=== PATIENT | male | born 1965 | race Caucasian/White ===

== ENCOUNTER → 2021-03-27 | Outpatient (CLI) | payer MEDICAID ==
[2021-03-27 15:30] LABS: Basophils # (auto) 0.1 10 ^3/uL (0-0.2); Basophils % (auto) 0.8 % (0.0-2.0); Eosinophils # (auto) 0.2 10 ^3/uL (0-0.8); Eosinophils % (auto) 2.7 % (0.0-7.0); Hematocrit 46.4 % (41.0-53.0); Hemoglobin 15.6 g/dL (13.5-17.5); Lymphocytes # (auto) 1.5 10 ^3/uL (0.4-5.4); Lymphocytes % (auto) 22.2 % (10.0-50.0); Mean Corpuscular Hemoglobin 32.7 pg (28.0-32.0); Mean Corpuscular Hgb Conc. 33.6 g/dL (32.0-36.0); Mean Corpuscular Volume 97.4 fL (80.0-100.0); Monocytes # (auto) 0.5 10 ^3/uL (0-1.3); Monocytes % (auto) 8.1 % (0.0-12.0); Neutrophils # (auto) 4.5 10 ^3/uL (1.6-8.6); Neutrophils % (auto) 66.2 % (37.0-80.0); Red Blood Cells 4.77 10^6/uL (4.5-5.90); Red Cell Distribution Width 15.4 % (11.8-14.3); White Blood Cell 6.8 10^3/uL (4.4-10.8)
[2021-03-27 16:32] LABS: Albumin 3.2 g/dL (3.4-5.0); BUN/Creatinine Ratio 11.5; Calcium 8.9 mg/dL (8.5-10.1); Potassium 4.8 mmol/L (3.5-5.1)
[2021-03-27 16:41] LABS: Bilirubin, Total 1.1 mg/dL (0.2-1.0); Total Protein 6.4 g/dL (6.4-8.2)
== END | disposition home or self-care (01) ==
LOC: LAB 15:10
PROVIDERS: ATTEND Student in an Organized Health Care Education/Training Program
DX: E78.5 Hyperlipidemia, unspecified (principal)
CPT/HCPCS: 36415; 80053; 80061; 85025

== ENCOUNTER 2021-06-21 14:46 | Emergency (ER) | payer MEDICAID ==
[~2021-06-21] VITALS: Ht 182.9 cm; Wt 113.4 kg
[2021-06-21 15:33] LABS: Basophils # (auto) 0 10 ^3/uL (0-0.2); Basophils % (auto) 0.3 % (0.0-2.0); Eosinophils # (auto) 0 10 ^3/uL (0-0.8); Eosinophils % (auto) 0.4 % (0.0-7.0); Hematocrit 37.8 % (41.0-53.0); Hemoglobin 13.1 g/dL (13.5-17.5); Lymphocytes # (auto) 0.7 10 ^3/uL (0.4-5.4); Mean Corpuscular Hemoglobin 34.1 pg (28.0-32.0); Mean Corpuscular Hgb Conc. 34.6 g/dL (32.0-36.0); Mean Corpuscular Volume 98.5 fL (80.0-100.0); Monocytes # (auto) 0.5 10 ^3/uL (0-1.3); Monocytes % (auto) 6.8 % (0.0-12.0); Neutrophils # (auto) 5.5 10 ^3/uL (1.6-8.6); Neutrophils % (auto) 81.5 % (37.0-80.0); Nucleated Red Blood Cells % 0.1 %; Red Blood Cells 3.84 10^6/uL (4.5-5.90); Red Cell Distribution Width 16.7 % (11.8-14.3); White Blood Cell 6.7 10^3/uL (4.4-10.8)
[2021-06-21] MEDS ORDERED: SODIUM CHLORIDE 0.9% 1,000 ML IV ONE (15:45)
[2021-06-21] MEDS ORDERED: CLINDAMYCIN 600MG IV 50 ML IV ONE (15:45)
[2021-06-21] MEDS ORDERED: cefTRIAXone 1GM/50ML D5W 50 ML IV ONE (15:45)
[2021-06-21 15:57] LABS: Albumin 3.2 g/dL (3.4-5.0); Calcium 9.6 mg/dL (8.5-10.1); Potassium 3.7 mmol/L (3.5-5.1)
[2021-06-21 16:00] LABS: BUN/Creatinine Ratio 8.3; Bilirubin, Total 0.9 mg/dL (0.2-1.0); Total Protein 7.5 g/dL (6.4-8.2)
[2021-06-21 17:00] LABS: INR 1.04 (0.9-1.15)
[2021-06-21 18:29] VITALS: BP 110/57
== END 2021-06-21 18:24 | disposition short-term general hospital (02) ==
LOC: EDBD 14:46 → ER 14:46 → EDUNIT# 14:46 → ER 18:24
DX: L03.211 Cellulitis of face (principal); I10 Essential (primary) hypertension
CPT/HCPCS: 36415; 70486; 71045; 80053; 84484; 85025; 85610; 85730; 87426; 96365; 96368; 99285; J0696; J3490; J7030

== ENCOUNTER 2022-03-22 15:51 | Inpatient (IN) | payer MEDICAID ==
[~2022-03-22] VITALS: Ht 193 cm; Wt 133.8 kg
[2022-03-22] MEDS ORDERED: FUROSEMIDE 40 MG/4 ML VIAL IV ONE (16:00)
[2022-03-22 17:03] LABS: Basophils # (auto) 0 10 ^3/uL (0-0.2); Basophils % (auto) 0.8 % (0.0-2.0); Eosinophils # (auto) 0.2 10 ^3/uL (0-0.8); Eosinophils % (auto) 5.6 % (0.0-7.0); Hematocrit 38.6 % (41.0-53.0); Hemoglobin 12.9 g/dL (13.5-17.5); Lymphocytes # (auto) 1.2 10 ^3/uL (0.4-5.4); Lymphocytes % (auto) 32.9 % (10.0-50.0); Mean Corpuscular Hemoglobin 30.7 pg (28.0-32.0); Mean Corpuscular Hgb Conc. 33.3 g/dL (32.0-36.0); Mean Corpuscular Volume 92.3 fL (80.0-100.0); Monocytes # (auto) 0.5 10 ^3/uL (0-1.3); Monocytes % (auto) 13.2 % (0.0-12.0); Neutrophils # (auto) 1.7 10 ^3/uL (1.6-8.6); Neutrophils % (auto) 47.5 % (37.0-80.0); Nucleated Red Blood Cells % 0.4 %; Red Blood Cells 4.18 10^6/uL (4.5-5.90); Red Cell Distribution Width 14.6 % (11.8-14.3); White Blood Cell 3.7 10^3/uL (4.4-10.8)
[2022-03-22 17:14] LABS: Albumin 2.9 g/dL (3.4-5.0); BUN/Creatinine Ratio 9.5; Calcium 9.4 mg/dL (8.5-10.1); Magnesium 2.7 mg/dL (1.6-2.6); Potassium 4.3 mmol/L (3.5-5.1)
[2022-03-22 17:17] LABS: Bilirubin, Total 0.4 mg/dL (0.2-1.0); Total Protein 6.7 g/dL (6.4-8.2)
[2022-03-22 18:55] LABS: Urine Bacteria FEW /hpf (None Seen); Urine Blood Negative /uL (Negative); Urine Hyaline Cast FEW /lpf (0 - 2); Urine Specific Gravity 1.014 (1.001-1.035); Urine WBC 68 /hpf (0 - 3)
[2022-03-22] MEDS ORDERED: MORPHINE SULFATE INJ 2 MG/ml SYRG IV PRN (19:15)
[2022-03-22] MEDS ORDERED: ONDANSETRON HCL 4 MG/2 ML VIAL IV PRN (19:15)
[2022-03-22] MEDS ORDERED: NITROGLYCERIN 0.4 MG SL TAB SL PRN ×2 (19:15)
[2022-03-22] MEDS ORDERED: ENOXAPARIN SOD 30 MG/0.3 ML SYRINGE IV ONE (19:15)
[2022-03-22] MEDS ORDERED: MORPHINE SULFATE 4 MG/ML SYR/VIAL IV PRN (19:15)
[2022-03-22] MEDS ORDERED: ACETAMINOPHEN 325 MG TAB PO PRN (19:15)
[2022-03-22] MEDS: cefTRIAXone 1GM/50ML D5W 50 ML IV SCH (20:06)
[2022-03-22] MEDS: PANTOPRAZOLE 40 MG/10 ML VIAL INJ IV SCH (20:06)
[2022-03-22 20:40] LABS: Creatinine, Urine 132 mg/dL (30.0-125.0); Sodium Urine 45 mmol/L (40-220)
[2022-03-23] VITALS (8 sets, daily range): BP systolic 109–147; BP diastolic 57–72
[2022-03-23 06:51] LABS: Basophils # (auto) 0 10 ^3/uL (0-0.2); Basophils % (auto) 0.5 % (0.0-2.0); Eosinophils # (auto) 0.2 10 ^3/uL (0-0.8); Eosinophils % (auto) 3.9 % (0.0-7.0); Hematocrit 38.6 % (41.0-53.0); Hemoglobin 12.8 g/dL (13.5-17.5); Lymphocytes # (auto) 1.1 10 ^3/uL (0.4-5.4); Lymphocytes % (auto) 18.5 % (10.0-50.0); Mean Corpuscular Hemoglobin 30.7 pg (28.0-32.0); Mean Corpuscular Hgb Conc. 33.1 g/dL (32.0-36.0); Mean Corpuscular Volume 92.6 fL (80.0-100.0); Monocytes # (auto) 0.6 10 ^3/uL (0-1.3); Monocytes % (auto) 10.4 % (0.0-12.0); Neutrophils # (auto) 4.1 10 ^3/uL (1.6-8.6); Neutrophils % (auto) 66.7 % (37.0-80.0); Red Blood Cells 4.17 10^6/uL (4.5-5.90); Red Cell Distribution Width 14.7 % (11.8-14.3); White Blood Cell 6.1 10^3/uL (4.4-10.8)
[2022-03-23 07:26] LABS: Albumin 2.9 g/dL (3.4-5.0); Calcium 9.2 mg/dL (8.5-10.1); Magnesium 2.5 mg/dL (1.6-2.6); Potassium 4.2 mmol/L (3.5-5.1)
[2022-03-23 07:31] LABS: BUN/Creatinine Ratio 9.7; Bilirubin, Total 0.3 mg/dL (0.2-1.0); Total Protein 6.4 g/dL (6.4-8.2)
[2022-03-23] MEDS: cefTRIAXone 1GM/50ML D5W 50 ML IV SCH (09:27)
[2022-03-23] MEDS: PANTOPRAZOLE 40 MG/10 ML VIAL INJ IV SCH (09:27)
[2022-03-23] MEDS: ASPirin 81 mg TAB PO SCH (11:00)
[2022-03-23] MEDS: LISINOPRIL 5 MG TAB PO SCH (11:03)
[2022-03-23] MEDS: FUROSEMIDE 40 MG/4 ML VIAL IV SCH (11:04)
[2022-03-23] MEDS: DOCUSATE SOD 100 MG CAP PO SCH (11:04)
[2022-03-23] MEDS ORDERED: ENOXAPARIN SOD 40 MG/0.4 ML SYRINGE SC ONE (11:30)
[2022-03-23] MEDS: HYDROcodone-ACET 10/325MG TAB PO PRN ×2 (15:06→22:00)
[2022-03-23] MEDS: TEMAZEPAM 15 MG CAP PO PRN (22:00)
[2022-03-23] MEDS: ATORVASTATIN 20 MG TAB PO SCH (22:00)
[2022-03-24] VITALS (7 sets, daily range): BP systolic 103–131; BP diastolic 54–96
[2022-03-24] MEDS: HYDROcodone-ACET 10/325MG TAB PO PRN ×3 (05:10→20:28)
[2022-03-24 06:29] LABS: Basophils # (auto) 0 10 ^3/uL (0-0.2); Basophils % (auto) 0.8 % (0.0-2.0); Eosinophils # (auto) 0.3 10 ^3/uL (0-0.8); Hematocrit 40.9 % (41.0-53.0); Hemoglobin 13.5 g/dL (13.5-17.5); Lymphocytes # (auto) 1.5 10 ^3/uL (0.4-5.4); Lymphocytes % (auto) 25.2 % (10.0-50.0); Mean Corpuscular Hemoglobin 30.6 pg (28.0-32.0); Mean Corpuscular Volume 92.5 fL (80.0-100.0); Monocytes # (auto) 0.6 10 ^3/uL (0-1.3); Monocytes % (auto) 9.5 % (0.0-12.0); Neutrophils # (auto) 3.5 10 ^3/uL (1.6-8.6); Neutrophils % (auto) 59.5 % (37.0-80.0); Nucleated Red Blood Cells % 0.1 %; Red Blood Cells 4.42 10^6/uL (4.5-5.90); Red Cell Distribution Width 14.2 % (11.8-14.3); White Blood Cell 5.8 10^3/uL (4.4-10.8)
[2022-03-24 06:46] LABS: Calcium 9.7 mg/dL (8.5-10.1); Potassium 4.1 mmol/L (3.5-5.1)
[2022-03-24 06:50] LABS: BUN/Creatinine Ratio 10.7
[2022-03-24] MEDS: DOCUSATE SOD 100 MG CAP PO SCH (09:26)
[2022-03-24] MEDS: PANTOPRAZOLE 40 MG/10 ML VIAL INJ IV SCH (09:27)
[2022-03-24] MEDS: LISINOPRIL 5 MG TAB PO SCH ×2 (09:27→09:31)
[2022-03-24] MEDS: FUROSEMIDE 40 MG/4 ML VIAL IV SCH (09:28)
[2022-03-24] MEDS: ENOXAPARIN SOD 40 MG/0.4 ML SYRINGE SC SCH (09:28)
[2022-03-24] MEDS: ASPirin 81 mg TAB PO SCH (09:28)
[2022-03-24] MEDS: cefTRIAXone 1GM/50ML D5W 50 ML IV SCH (09:29)
[2022-03-24] MEDS: ATORVASTATIN 20 MG TAB PO SCH (22:12)
[2022-03-24] MEDS: TEMAZEPAM 15 MG CAP PO PRN (22:13)
[2022-03-25] MEDS: HYDROcodone-ACET 10/325MG TAB PO PRN ×2 (04:16→11:09)
[2022-03-25 05:18] VITALS: BP 129/95
[2022-03-25 06:42] LABS: Basophils # (auto) 0 10 ^3/uL (0-0.2); Basophils % (auto) 0.5 % (0.0-2.0); Eosinophils # (auto) 0.1 10 ^3/uL (0-0.8); Eosinophils % (auto) 0.9 % (0.0-7.0); Hematocrit 41.3 % (41.0-53.0); Hemoglobin 13.6 g/dL (13.5-17.5); Lymphocytes # (auto) 1.2 10 ^3/uL (0.4-5.4); Lymphocytes % (auto) 17.6 % (10.0-50.0); Mean Corpuscular Hemoglobin 30.6 pg (28.0-32.0); Mean Corpuscular Volume 92.6 fL (80.0-100.0); Monocytes # (auto) 0.4 10 ^3/uL (0-1.3); Monocytes % (auto) 6.1 % (0.0-12.0); Neutrophils # (auto) 5.1 10 ^3/uL (1.6-8.6); Neutrophils % (auto) 74.9 % (37.0-80.0); Red Blood Cells 4.46 10^6/uL (4.5-5.90); Red Cell Distribution Width 14.8 % (11.8-14.3); White Blood Cell 6.8 10^3/uL (4.4-10.8)
[2022-03-25 07:19] LABS: BUN/Creatinine Ratio 10.7; Calcium 9.7 mg/dL (8.5-10.1); Potassium 4.2 mmol/L (3.5-5.1)
[2022-03-25 08:00] VITALS: BP 111/5
[2022-03-25] MEDS: cefTRIAXone 1GM/50ML D5W 50 ML IV SCH (08:34)
[2022-03-25] MEDS: PANTOPRAZOLE 40 MG/10 ML VIAL INJ IV SCH (08:36)
[2022-03-25] MEDS: DOCUSATE SOD 100 MG CAP PO SCH (08:36)
[2022-03-25] MEDS: FUROSEMIDE 40 MG/4 ML VIAL IV SCH (08:36)
[2022-03-25] MEDS: LISINOPRIL 5 MG TAB PO SCH (08:37)
[2022-03-25] MEDS: ASPirin 81 mg TAB PO SCH (08:37)
[2022-03-25] MEDS: ENOXAPARIN SOD 40 MG/0.4 ML SYRINGE SC SCH (08:38)
[2022-03-25 08:41] VITALS: BP 126/78
[2022-03-25] MEDS ORDERED: ASPI-325 PO (11:29)
[2022-03-25] MEDS ORDERED: LISI-275 PO (11:29)
[2022-03-25] MEDS ORDERED: FURO1TAB33 PO (11:29)
[2022-03-25] MEDS ORDERED: ATOR20TA50 PO (11:29)
[2022-03-25] MEDS ORDERED: POLY33504 PO (12:40)
[2022-03-25] MEDS ORDERED: NAP500T PO (12:40)
[2022-03-25] MEDS ORDERED: DOCU100T15 PO (12:40)
[2022-03-25] MEDS ORDERED: GABA-339 PO (12:40)
[2022-03-25] MEDS ORDERED: QUET400T13 PO (12:40)
[2022-03-25] MEDS ORDERED: DULO1CAP6 PO (12:40)
[2022-03-25] MEDS ORDERED: DULO60CA PO (12:40)
[2022-03-25] MEDS ORDERED: BUSP10TA90 PO (12:40)
[2022-03-25] MEDS ORDERED: CLON0.5T3 PO (12:40)
[2022-03-25] MEDS ORDERED: SACU1TAB PO (12:40)
[2022-03-25] MEDS ORDERED: GABA300C10 PO (12:40)
[2022-03-25] MEDS ORDERED: HYDR-4798 PO (12:40)
[2022-03-25] MEDS ORDERED: DOCU100C10 PO (12:44)
[2022-03-25 12:56] VITALS: BP 111/57
[2022-03-25 13:09] VITALS: BP 111/57
== END 2022-03-25 13:56 | disposition home health service (06) | DRG 194 ==
LOC: EDBD 15:51 → ER 15:55 → TELE 19:23 → TELE-WESTW 03-23 00:47
PROVIDERS: ADMIT Nurse Practitioner Family; ATTEND Internal Medicine Pulmonary Disease
DX: I11.0 Hypertensive heart disease with heart failure (principal); N17.9 Acute kidney failure, unspecified; E83.41 Hypermagnesemia; I50.43 Acute on chronic combined systolic (congestive) and diastolic (congestive) heart failure; E78.5 Hyperlipidemia, unspecified; N30.00 Acute cystitis without hematuria; K64.8 Other hemorrhoids; R06.03 Acute respiratory distress; I25.10 Atherosclerotic heart disease of native coronary artery without angina pectoris; Z20.822 Contact with and (suspected) exposure to COVID-19; E66.01 Morbid (severe) obesity due to excess calories; R09.02 Hypoxemia; Z81.8 Family history of other mental and behavioral disorders; Z68.36 Body mass index [BMI] 36.0-36.9, adult; Z82.0 Family history of epilepsy and other diseases of the nervous system; Z87.891 Personal history of nicotine dependence; Z95.810 Presence of automatic (implantable) cardiac defibrillator
CPT/HCPCS: 36415; 71045; 80048; 80053; 80061; 81001; 82570; 83735; 83880; 84300; 84484; 85025; 87086; 87088; 87186; 87426; 93005; 93306; 93970; 96365; 96375; C9113; G0378; J0696

== ENCOUNTER → 2023-04-03 | Outpatient (CLI) | payer MEDICAID ==
[~2023-04-03] MED LIST: ASPI-325 PO; ATOR20TA50 PO; BUSP10TA90 PO; CLON0.5T3 PO; DOCU-265 PO; DULO1CAP6 PO; FURO1TAB33 PO; GABA-1250 PO; GABA-339 PO; HYDR-4798 PO; LISI-275 PO; NAP500T PO; POLY33504 PO; QUET400T13 PO; SACU1TAB PO
== END | disposition home or self-care (01) ==
LOC: LAB 11:53
PROVIDERS: ATTEND Urology
DX: R97.20 Elevated prostate specific antigen [PSA] (principal)
CPT/HCPCS: 84153

== ENCOUNTER → 2023-04-08 | Outpatient (CLI) | payer MEDICAID ==
[2023-04-08 14:29] LABS: Urine Bacteria NONE SEEN /hpf (None Seen); Urine Blood Negative /uL (Negative); Urine Clarity Clear (Clear); Urine Color Yellow (Yellow); Urine Hyaline Cast FEW /lpf (0 - 2); Urine Protein, UAD TRACE (Negative); Urine Specific Gravity 1.017 (1.001-1.035); Urine Urobilinogen Normal (Negative); Urine WBC 1 /hpf (0 - 3); Urine pH 5.5 (5.0-8.0)
== END | disposition home or self-care (01) ==
LOC: LAB 13:54
PROVIDERS: ATTEND Student in an Organized Health Care Education/Training Program
DX: N40.1 Benign prostatic hyperplasia with lower urinary tract symptoms (principal)
CPT/HCPCS: 81001; 87086

== ENCOUNTER 2024-05-28 12:20 | Inpatient (IN) | payer MEDICAID ==
[~2024-05-28] VITALS: Ht 193 cm; Wt 121.3 kg
--- NOTE | 2024-05-28 12:42 | ED.PDOC ---
GI ASSESSMENT HPI Comments This is a 59-year-old male who comes in with chief complaint of abdominal pain. The patient states that he has been having some constipation for the past three weeks. There has been some nausea but no vomiting. At this time the pain is an 8/10. The patient denies any fever the patient called 911 and was transported to our facility. He denies any rectal bleeding. Time Seen by MD: 12:27 Primary Care Provider: HUBERT Reviewed Notes: Nurses Notes, Insulator Cutter And Former Notes, Medications, Allergies (No allergies to medications) Allergies: Coded Allergies: NO KNOWN ALLERGIES (Unverified , 06/21/21) Home Meds Active Scripts Furosemide (Lasix) 20 Mg Tb, 2 TAB PO DAILY, #45 TAB 1 Refill Prov:EUNICE HARGROVE MD 03/25/22 Lisinopril (Lisinopril) 5 Mg Tab, 5 MG PO DAILY for 30 Days, #30 TAB Prov:EUNICE HARGROVE MD 03/25/22 Atorvastatin Calcium (ATORVASTATIN CALCIUM) 20 Mg Tab, 40 MG PO HS for 30 Days, #30 TAB Prov:EUNICE HARGROVE MD 03/25/22 Aspirin (Aspirin Low Dose) 81 Mg Tab, 81 MG PO DAILY for 30 Days, #30 TAB Prov:EUNICE HARGROVE MD 03/25/22 Reported Medications Docusate Sodium (Docusate Sodium) 100 Mg Cap, 1 CAP PO BID, CAP 03/25/22 Polyethylene Glycol (MIRALAX 17GM PWD) 17 Gm Pw, 17 GRAMS PO DAILY, #255 GRAMS 03/25/22 Naproxen (NAPROSYN TABLET) 500 Mg Tb, 1 TAB PO BID, #60 TAB 1 Refill 03/25/22 Gabapentin (Gabapentin) 600 Mg Tab, 2 TAB PO HS, MG 03/25/22 Gabapentin (Gabapentin) 300 Mg Cap, 1 TAB PO BID, MG 03/25/22 Clonazepam (KlonoPIN TABLET) 0.5 Mg Tb, 1 TAB PO BID, #60 TAB 1 Refill 03/25/22 Quetiapine Fumerate (QUETIAPINE FUMARATE) 400 Mg Tab, 2 TAB PO HS for 30 Days, MG 03/25/22 Duloxetine HCl (Duloxetine HCl) 60 Mg Cap, 2 CAP PO QAM, CAP 03/25/22 Buspirone Hcl (Buspirone Hcl) 10 Mg Tab, 1 TAB PO BID, MG 03/25/22 Sacubitril-Valsartan (Entresto 24-26 mg) 1 Tab Tab, 1 TAB PO DAILY, TAB 03/25/22 Hydrocodone-Acetaminophen (Hydrocodone Bitartrate/AC 10-325 mg) 1 Tab Tab, 1 TAB PO Q6HP PRN for PAIN SCALE 1 THRU 6, TAB 03/25/22 Information Source: Patient, Emergency Med Personnel Mode of Arrival: EMS Timing: Weeks Duration: Since onset Prehospital treatment: Global Compensation Manager, IVF Quality: Aching, Cramping Vomitus: None Stool: Other (Constipation) Severity: Moderate Recent: None Recent Hx of: None Pain Location: Diffuse Modifying Factors: Nothing Associated sign and symptoms: Nausea, Constipation, Abdominal Pain Past Medical History PAST MEDICAL HISTORY: CAD, CHF, COPD, CVA, High Lipids, HTN, ME Past Medical History (Other): BPH, AAA Surgical History: Pacemaker Surgical History (Other): Back surgery Family History Family History: Reviewed,noncontributory to illness Family History (Other): Family hx of Alzheimer's Social History Smoker: Quit Less Than 1 Year, Cigarettes Alcohol: Denies ETOH Use Drugs: Denies Drug Use Lives In: Home Constitutional: denies: chills, diaphoresis, fatigue, fever, malaise, sweats, weakness, others EENTM: denies: blurred vision, double vision, ear bleeding, ear discharge, ear drainage, ear pain, ear ringing, eye pain, eye redness, hearing loss, mouth pain, mouth swelling, nasal discharge, nose bleeding, nose congestion, nose pain, photophobia, tearing, throat pain, throat swelling, voice changes, others Respiratory: denies: cough, hemoptysis, orthopnea, SOB at rest, shortness of breath, SOB with excertion, stridor, wheezing, others Cardiovascular: denies: chest pain, dizzy spells, diaphoresis, Dyspnea on exertion, edema, irregular heart beat, left arm pain, lightheadedness, palpitations, PND, syncope, others Gastrointestinal: reports: abdominal pain, constipated, nausea; denies: abdomen distended, blood streaked bowels, diarrhea, dysphagia, difficulty swallowing, hematemesis, melena, poor appetite, poor fluid intake, rectal bleeding, rectal pain, vomiting, others Genitourinary: denies: burning, dysuria, flank pain, frequency, hematuria, incontinence, penile discharge, penile sore, pain, testicle pain, testicle swell ing, urgency, others Neurological: denies: dizziness, fainting, headache, left sided numbness, left sided weakness, numbness, paresthesia, pre-existing deficit, right sided numbness, right sided weakness, seizure, speech problems, tingling, tremors, weakness, others Musculoskeletal: denies: back pain, gout, joint pain, joint swelling, muscle pain, muscle stiffness, neck pain, others Integumetry: denies: bruises, change in color, change in hair/nails, dryness, laceration, lesions, lumps, rash, wounds, others Allergic/Immunocompromised: denies: Difficulty Healing, Frequent Infections, Hives, Itching, others Hematologic/Lymphatic: denies: anemia, blood clots, easy bleeding, easy bruising, swollen glands, others Endocrine: denies: excessive hunger, excessive sweating, excessive thirst, excessive urination, flushing, intolerance to cold, intolerance to heat, unexplained weight gain, unexplained weight loss, others Psychiatric: denies: anxiety, bipolar disorder, depression, hopeless, panic disorder, schizophrenia, sleepless, suicidal, others Physical Exam General Appearance: Moderate Distress, Obese HEENT: Normal ENT Inspection, Pharynx Normal, TMs Normal Neck: Full Range of Motion, Non-Tender, Normal, Normal Inspection Respiratory: Chest Non-Tender, Lungs Clear, No Accessory Muscle Use, No Respiratory Distress, Normal Breath Sounds Cardiovascular: No Edema, No JVD, No Murmur, No Gallop, Normal Peripheral Pulses, Regular Rate/Rhythm Breast Exam: Deferred Gastrointestinal: Diffuse, No Organomegaly, No Pulsatile Mass, Normal Bowel Sounds, Soft, Tenderness Genitalia: Deferred Pelvic: Deferred Rectal: Deferred Extremities: No calf tenderness, Normal capillary refill, Normal inspection, Normal range of motion, Non-tender, No pedal edema Musculoskeletal : Apperance: Normal Neurologic: Alert, diagnostic radiologic technologist II-XII nml as Tested, No Motor Deficits, Normal Affect, Normal Mood, No Sensory Deficits Cerebellar Function: Normal Reflexes: Normal Skin: Dry, Normal Color, Warm Lymphatic: No Adenopathy Was a procedure done? Was a procedure done?: No GI differential Dx Differential Diagnosis: Appendicitis, Bowel Obstruction, Cholecystitis, Gastritis/PUD, Gastroenteritis X-Ray, Labs, Meds, VS Vital Signs Date Time Temp Pulse Resp B/P (MAP) Pulse Ox O2 Delivery O2 Flow Rate FiO2 05/28/24 15:30 98.9 74 17 100/64 (76) 100 98.9 05/28/24 15:29 74 17 100/64 05/28/24 13:42 77 18 101/77 05/28/24 13:33 77 18 99 Nasal Cannula* 2 28 05/28/24 13:13 98.6 77 17 101/71 (81) 99 98.6 05/28/24 13:13 77 17 99 Nasal Cannula 2.0 05/28/24 12:46 97.7 76 16 107/74 (85) 93 Lab Test 05/28/24 13:23 05/28/24 13:07 Range/Units White Blood Count 5.4 4.4-10.8 10^3/uL Red Blood Count 5.00 4.5-5.90 10^6/uL Hemoglobin 16.1 13.5-17.5 g/dL Hematocrit 47.0 41.0-53.0 % Mean Corpuscular Volume 93.9 80.0-100.0 fL Mean Corpuscular Hemoglobin 32.2 H 28.0-32.0 pg Mean Corpuscular Hemoglobin Concent 34.3 32.0-36.0 g/dL Red Cell Distribution Width 15.0 H 11.8-14.3 % Platelet Count 176 140-450 10^3/uL Mean Platelet Volume 10.3 6.9-10.8 fL Neutrophils (%) (Auto) 57.6 37.0-80.0 % Lymphocytes (%) (Auto) 30.0 10.0-50.0 % Monocytes (%) (Auto) 8.8 0.0-12.0 % Eosinophils (%) (Auto) 2.4 0.0-7.0 % Basophils (%) (Auto) 1.2 0.0-2.0 % Neutrophils # (Auto) 3.1 1.6-8.6 10 ^3/uL Lymphocytes # (Auto) 1.6 0.4-5.4 10 ^3/uL Monocytes # (Auto) 0.5 0-1.3 10 ^3/uL Eosinophils # (Auto) 0.1 0-0.8 10 ^3/uL Basophils # (Auto) 0.1 0-0.2 10 ^3/uL Nucleated Red Blood Cells 0.1 % Sodium Level 139 136-145 mmol/L Potassium Level 3.1 L 3.5-5.1 mmol/L Chloride Level 102 98-107 mmol/L Carbon Dioxide Level 31 20-31 mmol/L Anion Gap 6 5-15 Blood Urea Nitrogen 7 L 9-23 mg/dL Creatinine 1.44 H 0.700-1.30 mg/dL Glomerular Filtration Rate Calc 55 >90 mL/min BUN/Creatinine Ratio 4.9 L 10.0-20.0 Serum Glucose 96 74-106 mg/dL Calcium Level 10.0 8.7-10.4 mg/dL Total Bilirubin 0.9 0.2-1.0 mg/dL Aspartate Amino Transferase (AST) 24 13-40 U/L Alanine Aminotransferase (ALT) 17 7-40 U/L Alkaline Phosphatase 69 46-116 U/L Total Protein 6.4 5.7-8.2 g/dL Albumin 4.0 3.2-4.8 g/dL Lipase 23 12-53 U/L Urine Color Colorless Yellow Urine Clarity Clear Clear Urine pH 7.0 5.0-9.0 Urine Specific [place] 1.005 1.001-1.035 Urine Protein Negative Negative Urine Ketones Negative Negative Urine Blood Negative Negative /uL Urine Nitrite Negative Negative Urine Bilirubin Negative Negative Urine Urobilinogen Normal Negative mg/dL Urine Leukocyte Esterase 1+ Negative /uL Urine RBC 3 0 - 3 /hpf Urine Microscopic WBC 17 H 0-3 /HPF Urine Squamous Epithelial Cells Few <5 /hpf Urine Bacteria None seen None Seen /hpf Urine Glucose Normal Normal mg/dL Current Medications Medications (Trade) Dose Ordered Sig/[place] Route Start Time Stop Time Status Last Admin Morphine Sulfate 4 mg ONCE ONCE IV 05/28/24 12:45 05/28/24 13:02 DC 05/28/24 13:42 Ondansetron HCl (Zofran) 4 mg ONCE ONCE IV 05/28/24 12:45 05/28/24 13:02 DC 05/28/24 13:41 Pantoprazole Sodium (Protonix) 40 mg ONCE ONCE IV 05/28/24 12:45 05/28/24 13:02 DC 05/28/24 13:41 IV Hep-Lock was established The patient was given morphine 4 mg IV push for the pain The patient was given Zofran 4 mg IV push for the nausea The patient was given Protonix 40 mg IV push The urine test is positive for UTI The patient was given Rocephin IV piggyback The CBC and chemistry panel are within normal limits The CT scan of the abdomen and pelvis shows: IMPRESSION: 1. No acute abdominal or pelvic findings. Focal aneurysmal dilation of the descending thoracic aorta measuring up to 40 mm. Consider further evaluation with CTA of the chest. At this time, the patient was being admitted with a diagnosis of intractable abdominal pain Images Reviewed?: Images reviewed and evaluated by me Time of 1ST Reevaluation: 12:41 Reevaluation 1ST: Unchanged Patient Education/Counseling: Diagnosis, Treatment, Prognosis Family Education/Counseling: No Family Present Departure 1 Departure Time of Disposition: 16:39 Impression: Primary Impression: Intractable abdominal pain Additional Impression: UTI (urinary tract infection) Qualified Codes: N30.00 - Acute cystitis without hematuria Disposition: 09 ADMITTED INPATIENT Admit to: Med Surg Condition: Fair Critical Care Note Critical Care Time?: No Stability Stability form required: Yes Unstable for transfer: ED Physician Assesment (Clinical assesment) Heart Score Heart Score: Heart Score Response (Comments) Value History N/A 0 EKG N/A 0 Age N/A 0 Risk Factors N/A 0 Troponin N/A 0 Total 0 MELONY BARNEY MD May 28, 2024 12:42
[2024-05-28 13:33] VITALS: PULSE 77; RESP 18; O2SAT 99
[2024-05-28] MEDS: PANTOPRAZOLE 40 MG/10 ML VIAL INJ IV ONE (13:41)
[2024-05-28] MEDS: ONDANSETRON HCL 4 MG/2 ML VIAL IV ONE ×2 (13:41→17:11)
[2024-05-28] MEDS: MORPHINE SULFATE 4 MG/ML SYR/VIAL IV ONE ×2 (13:42→17:11)
[2024-05-28 13:48] LABS: Basophils # (auto) 0.1 10 ^3/uL (0-0.2); Basophils % (auto) 1.2 % (0.0-2.0); Eosinophils # (auto) 0.1 10 ^3/uL (0-0.8); Eosinophils % (auto) 2.4 % (0.0-7.0); Hemoglobin 16.1 g/dL (13.5-17.5); Lymphocytes # (auto) 1.6 10 ^3/uL (0.4-5.4); Mean Corpuscular Hemoglobin 32.2 pg (28.0-32.0); Mean Corpuscular Hgb Conc. 34.3 g/dL (32.0-36.0); Mean Corpuscular Volume 93.9 fL (80.0-100.0); Monocytes # (auto) 0.5 10 ^3/uL (0-1.3); Monocytes % (auto) 8.8 % (0.0-12.0); Neutrophils # (auto) 3.1 10 ^3/uL (1.6-8.6); Neutrophils % (auto) 57.6 % (37.0-80.0); Nucleated Red Blood Cells % 0.1 %; Platelet Count (auto) 176 10^3/uL (140-450); White Blood Cell 5.4 10^3/uL (4.4-10.8)
[2024-05-28 14:07] LABS: Alanine Aminotransferase 17 U/L (7-40); Alkaline Phosphatase 69 U/L (46-116); Anion Gap 6 (5-15); Aspartate Aminotransferase 24 U/L (13-40); BUN/Creatinine Ratio 4.9 (10.0-20.0); Carbon Dioxide 31 mmol/L (20-31); Chloride 102 mmol/L (98-107); Glucose 96 mg/dL (74-106); Lipase 23 U/L (12-53); Sodium 139 mmol/L (136-145)
[2024-05-28 14:08] LABS: Bilirubin, Total 0.9 mg/dL (0.2-1.0); Total Protein 6.4 g/dL (5.7-8.2)
[2024-05-28 14:12] LABS: Blood Urea Nitrogen 7 mg/dL (9-23); Potassium 3.1 mmol/L (3.5-5.1)
--- NOTE | 2024-05-28 14:15 | DVH ---
Exam: CT CT AB PEL WO CON-NO ORAL OR IV History: pain Comparison Study: ECID on DOS: 03/23/22 Technique: Multidetector spiral CT of the abdomen and pelvis was performed from lung bases to pubic symphysis. Imaging was performed without IV contrast. Axial, coronal and sagittal multiplanar reform ats were obtained from the axial data set by the technologist. Radiation dose : Abdomen/Pelvis: CTDIvol 24 mGy, DLP 1285 mGy*cm. Findings: Evaluation of solid organs is limited due to lack of intravenous contrast use. Lung Bases: Atelectasis and scarring in the lung bases. Liver: The liver is normal in size. No focal lesions. Gallbladder and biliary Tree: Unremarkable Spleen: Unremarkable Pancreas: The pancreas is grossly normal in appearance. Adrenal Glands: Unremarkable Kidneys: Kidneys are grossly normal without calculi or hydronephrosis. Bladder: Grossly unremarkable for degree of distention. Bowel: The stomach is grossly normal in appearance. Small bowel and colon are normal in caliber and d istribution. The appendix is not visualized; however, no secondary findings of acute appendicitis id entified. Ascites: Absent Lymphadenopathy: No mesenteric, retroperitoneal or periportal lymphadenopathy. Abdominal wall and Mesentery: Unremarkable. Vasculature: Calcified atherosclerotic disease. Focal aneurysmal dilation of the distal descending th oracic aorta measuring up to 40 mm. Pelvic Organs: Unremarkable Musculoskeletal: Degenerative and postsurgical changes in the spine. IMPRESSION: 1. No acute abdominal or pelvic findings. Focal aneurysmal dilation of the descending thoracic aorta measuring up to 40 mm. Consider further evaluation with CTA of the chest. Radiation optimization: All CT scans at this facility use at least one of these dose optimization leonid hniques: Automated exposure control mA and/or kV adjustment per patient size (includes targeted exams where dose is matched to clinical indication) or iterative reconstruction. HS:Y
[2024-05-28 14:39] LABS: Urine Bacteria None Seen /hpf (None Seen)
[2024-05-28 14:59] LABS: Urine Blood Negative /uL (Negative); Urine Clarity Clear (Clear); Urine Color Colorless (Yellow); Urine Protein, UAD Negative (Negative); Urine Specific Gravity 1.005 (1.001-1.035); Urine Squamous Epithelial Cell FEW /hpf (<5); Urine Urobilinogen Normal (Negative); Urine WBC 17 /HPF (0-3)
[2024-05-28] MEDS: cefTRIAXone 1GM/50ML D5W 50 ML IV ONE (17:11)
--- NOTE | 2024-05-28 21:12 | DVHHPRES ---
History of Present Illness Resident Creating Document: YANY JUNIOR RESIDENT History of Present Illness Patient is 59-year-old male with past medical history of Chronic obstructive pulmonary disease, CHF, MT, urinary incontinence, atrial fibrillation, stroke, back pain, spinal effusion, aortic aneurysm who came to the hospital with a chief complaint of diffuse abdominal pain. As per patient he did not have bowel movement in last three weeks. Abdominal pain associated with dry heave and few episodes of nausea but no vomiting. Pain 8/10, generalized loculated in all quadrants of abdomen, able to pass gas however no bowel movements in past three weeks. As per patient he started having issues with constipation for past six months, he tried taking prune juice, Colace, senna, lactulose yesterday however nothing worth that prompted visit to the hospital. Patient underwent CT abdominal pelvis which was unremarkable except constipation. Patient denied any other symptoms at this point. 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 Allergies none Home medication: Aspirin 81 mg p.o. daily, atorvastatin 20 mg p.o. daily, clonazepam 0.5 mg p.o. b.i.d., docusate 100 mg p.o. b.i.d., duloxetine 60 mg p.o. q.a.m., gabapentin 300 mg p.o. b.i.d., [place] five p.r.n., MiraLax 17 g p.o. daily, quetiapine 400 mg p.o. daily, Entresto 08/22/2025 p.o. daily. Past Surgical History: None Family History: None Smoke: No ALCOHOL: none Drugs: None Lives: with Family Domestic Violence: Neg Review of Systems Constitutional: No: Fever, Chills, Sweats, Weakness, Malaise, Other Eyes: No: Pain, Vision change, Conjunctivae inflammation, Eyelid inflammation, Other, Redness ENT: No: Ear pain, Ear discharge, Nose pain, Nose discharge, Nose congestion, Mouth pain, Mouth swelling, Throat pain, Throat swelling, Other Respiratory: No: Cough, Dry, Shortness of breath, SOB with excertion, Wheezing, Hemoptysis, Pleuritic Pain, Sputum, Wheezing, Other Cardiovascular: No: Chest Pain, Palpitations, Orthopnea, Paroxysmal Noc. Dyspnea, Edema, Lt Headedness, Other Gastrointestinal: Nausea, Abdominal Pain; No: Vomiting, Diarrhea, Constipation, Melena, Hematochezia, Other Genitourinary: No Dysuria, No Frequency, No Incontinence, No Hematuria, No Retention, No Other Musculoskeletal: No: other, neck pain, shoulder pain, arm pain, back pain, hand pain, leg pain, foot pain Skin: No: Rash, Lesions, Jaundice, Bruising, Other Neurological: No: Weakness, Numbness, Incoordination, Change in speech, Confusion, Seizures, Other Allergies: Coded Allergies: NO KNOWN ALLERGIES (Unverified , 06/21/21) Exam Vital Signs Vital Signs Date Time Temp Pulse Resp B/P (MAP) Pulse Ox O2 Delivery O2 Flow Rate FiO2 05/28/24 18:30 98.6 77 16 106/64 (78) 96 98.6 05/28/24 13:33 Nasal Cannula* 2 28 General Appearance: Alert, Oriented X3 HEENT: Atraumatic, PERRLA Respiratory: Clear to auscultation, Normal air movement Cardiovascular: Normal S1, Normal S2 Abdominal: Normal bowel sounds, Soft, No tenderness Extremities: No clubbing, No cyanosis, No edema, Normal pulses Skin: No rashes, No breakdown Neuro: Normal speech, Strength at 5/5 X4 ext, Normal tone, Sensation intact, Cranial nerves 3-12 NL Psych/Mental Status: Mental status NL, Mood NL Labs/Xrays Labs Test 05/28/24 13:23 05/28/24 13:07 Range/Units White Blood Count 5.4 4.4-10.8 10^3/uL Red Blood Count 5.00 4.5-5.90 10^6/uL Hemoglobin 16.1 13.5-17.5 g/dL Hematocrit 47.0 41.0-53.0 % Mean Corpuscular Volume 93.9 80.0-100.0 fL Mean Corpuscular Hemoglobin 32.2 H 28.0-32.0 pg Mean Corpuscular Hemoglobin Concent 34.3 32.0-36.0 g/dL Red Cell Distribution Width 15.0 H 11.8-14.3 % Platelet Count 176 140-450 10^3/uL Mean Platelet Volume 10.3 6.9-10.8 fL Neutrophils (%) (Auto) 57.6 37.0-80.0 % Lymphocytes (%) (Auto) 30.0 10.0-50.0 % Monocytes (%) (Auto) 8.8 0.0-12.0 % Eosinophils (%) (Auto) 2.4 0.0-7.0 % Basophils (%) (Auto) 1.2 0.0-2.0 % Neutrophils # (Auto) 3.1 1.6-8.6 10 ^3/uL Lymphocytes # (Auto) 1.6 0.4-5.4 10 ^3/uL Monocytes # (Auto) 0.5 0-1.3 10 ^3/uL Eosinophils # (Auto) 0.1 0-0.8 10 ^3/uL Basophils # (Auto) 0.1 0-0.2 10 ^3/uL Nucleated Red Blood Cells 0.1 % Sodium Level 139 136-145 mmol/L Potassium Level 3.1 L 3.5-5.1 mmol/L Chloride Level 102 98-107 mmol/L Carbon Dioxide Level 31 20-31 mmol/L Anion Gap 6 5-15 Blood Urea Nitrogen 7 L 9-23 mg/dL Creatinine 1.44 H 0.700-1.30 mg/dL Glomerular Filtration Rate Calc 55 >90 mL/min BUN/Creatinine Ratio 4.9 L 10.0-20.0 Serum Glucose 96 74-106 mg/dL Calcium Level 10.0 8.7-10.4 mg/dL Total Bilirubin 0.9 0.2-1.0 mg/dL Aspartate Amino Transferase (AST) 24 13-40 U/L Alanine Aminotransferase (ALT) 17 7-40 U/L Alkaline Phosphatase 69 46-116 U/L Total Protein 6.4 5.7-8.2 g/dL Albumin 4.0 3.2-4.8 g/dL Lipase 23 12-53 U/L Urine Color Colorless Yellow Urine Clarity Clear Clear Urine pH 7.0 5.0-9.0 Urine Specific [place] 1.005 1.001-1.035 Urine Protein Negative Negative Urine Ketones Negative Negative Urine Blood Negative Negative /uL Urine Nitrite Negative Negative Urine Bilirubin Negative Negative Urine Urobilinogen Normal Negative mg/dL Urine Leukocyte Esterase 1+ Negative /uL Urine RBC 3 0 - 3 /hpf Urine Microscopic WBC 17 H 0-3 /HPF Urine Squamous Epithelial Cells Few <5 /hpf Urine Bacteria None seen None Seen /hpf Urine Glucose Normal Normal mg/dL Assessment/Plan Assessment/Plan Abdominal pain likely due to severe constipation Descending thoracic aneurysm up to 40 mm. Acute urinary retention Chronic CHF systolic versus diastolic Chronic obstructive pulmonary disease, not exacerbation History of MT History of stroke History of atrial fibrillation on anticoagulation Eliquis Former smoker History of meth use Presence of AICD Plan/recommendation. -initiate resume of bisacodyl, senna, MiraLax for severe constipation, GI consultation for possible use of Gastrografin. 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 -IV antibiotic with ceftriaxone for urinary tract infection -attempted [place] however had resistant, we will go ahead with straight cath, pending bladder scan. -IV hydration with normal saline 50 mL/hour -p.r.n. ondansetron for nausea -resume home medication aspirin 81 mg p.o. daily, atorvastatin 40 mg p.o. daily. Patient advised to not take antimotility agent such as Benadryl, antipsychotic and [place] medication at this point given it can worsen constipation. Goals of care discussed greater than 23 minutes, full code status. Plan discussed with Dr. Jiang Plan discussed with: Patient, Other (RN) My Orders Orders - YANY JUNIOR RESIDENT Procedure Category Date Status Time Admit ADMIT 05/28/24 Transmitted 20:56 Aspirin Enteric PHA 05/29/24 Logged Coated Tablet 10:00 Atorvastatin (Lipitor) PHA 05/28/24 Logged 22:00 Clonazepam Tablet PHA 05/28/24 Logged (Klonopin Tablet) 22:00 (Nf) Gabapentin PHA 05/28/24 Logged 22:00 Bladder US 05/28/24 Transmitted 20:59 Insert/Manage Urinary TAYA 05/28/24 In Process Catheter 20:59 Senna Pod Tablet PHA 05/28/24 Logged (Senokot Tablet) 22:00 Bisacodyl Suppository PHA 05/28/24 Logged (Dulcolax Supposit 21:00 Bisacodyl Ec Tablet PHA 05/28/24 Logged (Dulcolax Ec Tablet) 21:00 Bisacodyl Ec Tablet PHA 05/28/24 Logged (Dulcolax Ec Tablet) 22:00 Polyethylene Glycol PHA 05/28/24 Logged 17g Powder (Miralax 21:00 Polyethylene Glycol PHA 05/29/24 Logged 17g Powder (Miralax 10:00 Ceftriaxone 1gm/50ml PHA 05/29/24 Logged D5w (Rocephin) 09:00 B-Type Natriuretic LAB 05/28/24 In Process Peptide 20:59 Chest Xray 1 View XY 05/28/24 Logged 20:59 Thyroid Stimulating LAB 05/28/24 In Process Hormone 20:59 Free T4 (Free LAB 05/28/24 Logged Thyroxine) 20:59 Free T3 LAB 05/28/24 Logged 20:59 Vitamin D, 25-Hydroxy LAB 05/28/24 In Process 20:59 Potassium Effervesent PHA 05/28/24 Logged Tab (Klor-Con/Ef) 21:15 Magnesium LAB 05/28/24 Logged 21:08 Urine Bacterial DOUGLAS 05/28/24 Logged Culture 21:10 Date of Service: May 28, 2024 Billing Provider: DASH JIANG MD Common Visit Codes: [id number] INP/OBS CARE (HIGH) YANY JUNIOR RESIDENT May 28, 2024 21:12 DASH JIANG MD May 30, 2024 00:31
[2024-05-28 21:52] LABS: Free T3 1.98 pg/mL (2.3-4.2)
[2024-05-28 21:53] LABS: Free T4 (Free Thyroxine) 1.09 ng/dL (0.89-1.76)
[2024-05-28] MEDS: ATORVASTATIN 20 MG TAB PO SCH (21:57)
[2024-05-28] MEDS: clonazePAM 0.5 MG TAB PO SCH (21:57)
[2024-05-28] MEDS: POLYETHYLENE GLYCOL 17 GM PWDR PO ONE (21:58)
[2024-05-28] MEDS: BISACODYL 5 MG EC TAB PO ONE (21:58)
[2024-05-28] MEDS: POTASSIUM EFFERVESENT TAB 25 MEQ PO ONE (21:58)
[2024-05-28] MEDS ORDERED: PATIENTS OWN MEDICATION (Gabapentin 2 TAB) PO SCH (22:00)
[2024-05-28] MEDS: ONDANSETRON HCL 4 MG/2 ML VIAL ONE (22:01)
[2024-05-28 22:24] VITALS: PULSE 89; RESP 20; O2SAT 95
[2024-05-28] MEDS: SENNA 8.6 MG TAB PO SCH (22:33)
[2024-05-28] MEDS: SODIUM CHLORIDE 0.9% 1,000 ML IV SCH (22:33)
[2024-05-28] MEDS: BISACODYL 10 MG RECT SUPP PR ONE (22:33)
--- NOTE | 2024-05-28 22:44 | DVH ---
CHEST RADIOGRAPH Indication: CHF Technique: Single frontal view of the chest was obtained Comparison: CHEST PORTABLE on DOS: 03/22/22, CXRP on DOS: 03/22/22, CHEST PORTABLE on DOS: 06/21/21 FINDINGS: Lines and Tubes: Dual-chamber AICD pacemaker in place with the pulse generator over the left chest. Lungs: Scarring or subsegmental atelectasis in the right base. Pleura: No effusion. No pneumothorax. Cardiomediastinal contours: Unremarkable Bones: No acute osseous abnormality. IMPRESSION: 1. Atelectasis or scarring in the right base.
[2024-05-28] MEDS: levETIRAcetam 500 MG TAB PO ONE (23:19)
[2024-05-29] VITALS (8 sets, daily range): BP systolic 100–125; BP diastolic 56–82; PULSE 73–88; RESP 12–20; TEMP 97.3–98.2; O2SAT 90–96
[2024-05-29] MEDS: ONDANSETRON HCL 4 MG/2 ML VIAL IV PRN (03:37)
[2024-05-29] MEDS: cefTRIAXone 1GM/50ML D5W 50 ML IV SCH (09:00)
[2024-05-29] MEDS: levETIRAcetam 500 MG TAB PO SCH (10:01)
[2024-05-29] MEDS: ASPirin-EC 81 mg tab PO SCH (10:01)
[2024-05-29] MEDS: POLYETHYLENE GLYCOL 17 GM PWDR PO SCH (10:01)
[2024-05-29] MEDS: BISACODYL 5 MG EC TAB PO SCH (10:01)
[2024-05-29] MEDS ORDERED: ATOR10TA PO ×2 (11:30)
[2024-05-29] MEDS ORDERED: ATOR20TA PO (11:32)
[2024-05-29] MEDS ORDERED: KEP500T PO ×2 (11:58)
[2024-05-29] MEDS ORDERED: QUET400T PO ×2 (11:58)
[2024-05-29] MEDS ORDERED: OMEP20TA PO (11:58)
[2024-05-29] MEDS ORDERED: MODA100T52 PO (11:58)
[2024-05-29] MEDS ORDERED: CHOL20007 OR (11:58)
[2024-05-29] MEDS ORDERED: CARV-217 PO (11:58)
[2024-05-29] MEDS ORDERED: GABA300C PO ×3 (11:58)
[2024-05-29] MEDS ORDERED: SEMA2INJ3 SC (11:58)
[2024-05-29] MEDS ORDERED: SENN-58 PO (11:58)
[2024-05-29] MEDS ORDERED: TOPI25TA84 PO (11:58)
[2024-05-29] MEDS ORDERED: APIX5TAB PO (11:58)
[2024-05-29] MEDS ORDERED: DOCU-94 PO ×3 (11:58)
[2024-05-29] MEDS ORDERED: PREG50CA PO ×2 (11:58)
[2024-05-29] MEDS ORDERED: FURO1TAB31 PO (11:58)
[2024-05-29] MEDS ORDERED: [UNRECOGNIZED DRUG - CODE] PO (11:58)
--- NOTE | 2024-05-29 13:16 | DVHINCON2 ---
GI Consult Consult Note Date of Consultation: May 29, 2024 Chief Complaint: Constipation Referring Physician: Kelly Bond&P: The patient is a 59-year-old male with a past medical history significant for hypertension, hyperlipidemia, history of coronary artery disease, history of [place], history of pacemaker, history of CVA, admitted with abdominal pain and constipation for the last three weeks stating that he has had minimal stool output. Patient states that he has tried MiraLax and other stool softeners without significant change. Patient was referred to a GI doctor and has a follow-up appointment pending. Patient states that his last colonoscopy was five years ago for which he had seven colon polyps. He denies any significant rectal bleeding. He denies any weight loss. Patient is able to pass gas. He denies any fevers or chills chest pain or shortness of breath. He denies any nausea or vomiting. As above Past Surgical History: 1. Pacemaker 2. Back surgery Social History: Prior tobacco use No alcohol or recreational drug use Family History: No gastrointestinal diseases or malignancies Current Medications Medications (Trade) Dose Ordered Sig/Aislinn Route PRN Reason Start Time Stop Time Status Last Admin Aspirin (Ecotrin Enteric Coated Tablet) 81 mg DAILY PO 05/29/24 10:00 05/29/24 10:01 Atorvastatin Calcium (Lipitor) 40 mg HS PO 05/28/24 22:00 05/28/24 21:57 Clonazepam (KlonoPIN TABLET) 0.5 mg BID PO 05/28/24 22:00 05/29/24 10:01 Patient Own Medication 2 tab HS PO 05/28/24 22:00 05/28/24 22:06 DC Sennosides (Senokot Tablet) 17.2 mg HS PO 05/28/24 22:00 Bisacodyl (Dulcolax EC Tablet) 5 mg BID PO 05/29/24 10:00 05/29/24 10:01 Polyethylene Glycol (Miralax 17GM Powder) 17 gm DAILY PO 05/29/24 10:00 05/29/24 10:01 Ceftriaxone Sodium 50 ml @ 100 mls/hr DAILY@09 IV 05/29/24 09:00 05/29/24 09:00 Sodium Chloride 1,000 ml @ 50 mls/hr Q20H IV 05/28/24 21:15 05/29/24 01:55 Ondansetron HCl (Zofran) 4 mg Q4HPRN PRN IV NAUSEA / VOMITING 05/28/24 22:00 05/29/24 09:02 Gabapentin (Neurontin Capsule) 600 mg HS PO 05/29/24 22:00 Levetiracetam (Keppra Tablet) 500 mg BID PO 05/29/24 10:00 05/29/24 10:01 Review of Systems: Constitutional: no fever, chill, weight loss HEENT: no eye pain, no hearing loss, no oral lesion, no scleral icterus Heart: no chest pain, no chest pressure he does have a cardiac disease history Lung: no cough, no dyspnea with exertion Abdomen: see HPI : no pain with urination, normal appearing urine denies kidney stone Musculoskeletal: no joint pain, no muscle pain Neurological: no seizure, no loss of sensation, no weakness in extremities Pysch: no depression, no anxiety Derm: no rash, no jaundice Vital Signs Date Time Temp Pulse Resp B/P (MAP) Pulse Ox O2 Delivery O2 Flow Rate FiO2 05/29/24 12:45 97.6 73 17 100/56 (71) 90 97.6 05/29/24 08:00 Room Air* 0 21 Physical exam: General: NAD, AAOX3, morbidly obese male HEENT: PERRL, no scleral icterus, normal hearing, gums without lesions or bleeding, oropharynx clear without erythema or exudate. Neck: Supple without enlargement of the thyroid, or lymphadenopathy. Chest: Normal size and shape, no tenderness, lung toro clear to auscultation and percussion, nonlabored breathing. Heart: RRR, no murmur Abdomen: non-distended, no tenderness to palpation, +BS, no hepatosplenomegaly Extremities: no edema, no cyanosis Neurological: CN II-XII intact, sensation intact in all extremities, 5+ strength in all extremities, no asterixis Skin: No rashes, No jaundice Labs: Labs Test 05/28/24 13:23 05/28/24 13:07 Range/Units White Blood Count 5.4 4.4-10.8 10^3/uL Red Blood Count 5.00 4.5-5.90 10^6/uL Hemoglobin 16.1 13.5-17.5 g/dL Hematocrit 47.0 41.0-53.0 % Mean Corpuscular Volume 93.9 80.0-100.0 fL Mean Corpuscular Hemoglobin 32.2 H 28.0-32.0 pg Mean Corpuscular Hemoglobin Concent 34.3 32.0-36.0 g/dL Red Cell Distribution Width 15.0 H 11.8-14.3 % Platelet Count 176 140-450 10^3/uL Mean Platelet Volume 10.3 6.9-10.8 fL Neutrophils (%) (Auto) 57.6 37.0-80.0 % Lymphocytes (%) (Auto) 30.0 10.0-50.0 % Monocytes (%) (Auto) 8.8 0.0-12.0 % Eosinophils (%) (Auto) 2.4 0.0-7.0 % Basophils (%) (Auto) 1.2 0.0-2.0 % Neutrophils # (Auto) 3.1 1.6-8.6 10 ^3/uL Lymphocytes # (Auto) 1.6 0.4-5.4 10 ^3/uL Monocytes # (Auto) 0.5 0-1.3 10 ^3/uL Eosinophils # (Auto) 0.1 0-0.8 10 ^3/uL Basophils # (Auto) 0.1 0-0.2 10 ^3/uL Nucleated Red Blood Cells 0.1 % Sodium Level 139 136-145 mmol/L Potassium Level 3.1 L 3.5-5.1 mmol/L Chloride Level 102 98-107 mmol/L Carbon Dioxide Level 31 20-31 mmol/L Anion Gap 6 5-15 Blood Urea Nitrogen 7 L 9-23 mg/dL Creatinine 1.44 H 0.700-1.30 mg/dL Glomerular Filtration Rate Calc 55 >90 mL/min BUN/Creatinine Ratio 4.9 L 10.0-20.0 Serum Glucose 96 74-106 mg/dL Calcium Level 10.0 8.7-10.4 mg/dL Magnesium Level 2.2 1.6-2.6 mg/dL Total Bilirubin 0.9 0.2-1.0 mg/dL Aspartate Amino Transferase (AST) 24 13-40 U/L Alanine Aminotransferase (ALT) 17 7-40 U/L Alkaline Phosphatase 69 46-116 U/L B-Type Natriuretic Peptide 11.15 0-100 pg/mL Total Protein 6.4 5.7-8.2 g/dL Albumin 4.0 3.2-4.8 g/dL Lipase 23 12-53 U/L Vitamin D 25-Hydroxy 56.5 30.0-100 ng/mL Thyroid Stimulating Hormone (TSH) 0.98 0.55-4.78 uIU/mL Free Thyroxine (T4) Calculated 1.09 0.89-1.76 ng/dL Free Triiodothyronine (T3) pg/mL 1.98 L 2.3-4.2 pg/mL Urine Color Colorless Yellow Urine Clarity Clear Clear Urine pH 7.0 5.0-9.0 Urine Specific [place] 1.005 1.001-1.035 Urine Protein Negative Negative Urine Ketones Negative Negative Urine Blood Negative Negative /uL Urine Nitrite Negative Negative Urine Bilirubin Negative Negative Urine Urobilinogen Normal Negative mg/dL Urine Leukocyte Esterase 1+ Negative /uL Urine RBC 3 0 - 3 /hpf Urine Microscopic WBC 17 H 0-3 /HPF Urine Squamous Epithelial Cells Few <5 /hpf Urine Bacteria None seen None Seen /hpf Urine Glucose Normal Normal mg/dL Imaging: No acute GI findings Assessment: 1. Constipation 2. Abdominal pain 3. Cardiac history with CHF, coronary artery disease Plan: 1. Soapsuds enemas 2. Hold off on any colonoscopy at this time consider outpatient colonoscopy 3. Avoid medications that can constipate such as Zofran, narcotics, antihistamines 4. We will follow 5. Diet as tolerated Date of Service: May 29, 2024 Billing Provider: NINA ROBERTS MD Common Visit Codes: [id number] INP/OBS CARE (HIGH) Consultation Codes: [id number] CONSULT <60MIN NINA ROBERTS MD May 29, 2024 13:16
[2024-05-29] MEDS: SODIUM CHLORIDE 0.9% 1,000 ML IV SCH (13:30)
[2024-05-29] MEDS: LACTULOSE 20Gm/30ML SOLN PO ONE (13:37)
[2024-05-29] MEDS: GABAPENTIN 300 MG CAP PO SCH (21:02)
[2024-05-30] VITALS (9 sets, daily range): BP systolic 96–119; BP diastolic 53–72; PULSE 63–86; RESP 15–20; TEMP 97.5–98.7; O2SAT 90–98
--- NOTE | 2024-05-30 10:16 | PRN ---
Misceleneous Note Note Note May 30, 2024 Subjective: Patient is improving, he had a bowel movement. Continues to have abdominal pain states that he is not having good bowel movements. He is tolerating a diet Current Medications Medications (Trade) Dose Ordered Sig/Aislinn Route Start Time Stop Time Status Last Admin Dose Admin Aspirin (Ecotrin Enteric Coated Tablet) 81 mg DAILY PO 05/29/24 10:00 05/30/24 09:33 81 MG Atorvastatin Calcium (Lipitor) 40 mg HS PO 05/28/24 22:00 05/29/24 21:02 40 MG Clonazepam (KlonoPIN TABLET) 0.5 mg BID PO 05/28/24 22:00 05/30/24 09:33 0.5 MG Sennosides (Senokot Tablet) 17.2 mg HS PO 05/28/24 22:00 05/29/24 21:02 17.2 MG Bisacodyl (Dulcolax EC Tablet) 5 mg BID PO 05/29/24 10:00 05/30/24 09:33 5 MG Polyethylene Glycol (Miralax 17GM Powder) 17 gm DAILY PO 05/29/24 10:00 05/30/24 09:33 17 GM Ceftriaxone Sodium 50 ml @ 100 mls/hr DAILY@09 IV 05/29/24 09:00 05/30/24 09:34 100 MLS/HR Ondansetron HCl (Zofran) 4 mg Q4HPRN PRN IV 05/28/24 22:00 05/29/24 18:35 4 MG Gabapentin (Neurontin Capsule) 600 mg HS PO 05/29/24 22:00 05/29/24 21:02 600 MG Levetiracetam (Keppra Tablet) 500 mg BID PO 05/29/24 10:00 05/30/24 09:33 500 MG Sodium Chloride 1,000 ml @ 100 mls/hr Q10H IV 05/29/24 13:30 05/30/24 09:48 100 MLS/HR Vital Signs Date Time Temp Pulse Resp B/P (MAP) Pulse Ox O2 Delivery O2 Flow Rate FiO2 05/30/24 08:45 98.0 78 17 106/66 (79) 94 98.0 05/30/24 08:00 Room Air* 0 21 His exam: General: Alert and oriented obese male lying in bed no distress Heart: Regular rate and rhythm Abdomen: Soft minimal tenderness to palpation nondistended no masses Extremity: No clubbing cyanosis edema Labs: Reviewed Impression: 59-year-old male complains of abdominal distention abdominal pain and constipation, not sure where he is getting his constipation from his abdomen is soft, CT scan did not show any significant findings and he has had bowel movements. Question psych behavior Recommendations: 1. Soapsuds enemas 2. Continue current medications 3. We will be signing off to Dr. Mejia in the morning NINA ROBERTS MD May 30, 2024 10:16
[2024-05-30] MEDS: FLEET ENEMA(ADULT) 135 ML PR ONE (12:30)
[2024-05-30] MEDS: levETIRAcetam 500 MG TAB PO SCH (22:38)
[2024-05-30] MEDS: DOCUSATE SOD 100 MG CAP PO SCH (22:38)
[2024-05-30] MEDS: TOPIRAMATE 25 MG TAB PO SCH (22:38)
[2024-05-30] MEDS: APIXABAN 5 MG TAB PO SCH (22:38)
[2024-05-31] VITALS (8 sets, daily range): BP systolic 99–117; BP diastolic 46–69; PULSE 80–87; RESP 16–20; TEMP 97.5–98.6; O2SAT 93–96
--- NOTE | 2024-05-31 08:10 | DVHINCON2 ---
Consultation - Surgical Date Seen: May 31, 2024 Referring Physician Referring Physician Fernanda Reason for Consultation Constipation History of Present Illness History of Present Illness The patient is a 59-year-old male with a past medical history significant for hypertension, hyperlipidemia, history of coronary artery disease, history of [place], history of pacemaker, history of CVA, admitted with abdominal pain and constipation for the last three weeks stating that he has had minimal stool output. Patient states that he has tried MiraLax and other stool softeners without significant change. Patient was referred to a GI doctor and has a follow-up appointment pending. Patient states that his last colonoscopy was five years ago for which he had seven colon polyps. He denies any significant rectal bleeding. He denies any weight loss. Patient is able to pass gas. He denies any fevers or chills chest pain or shortness of breath. He denies any nausea or vomiting. Overnight the patient had soapsuds enemas and had successful bowel movements. Patient feels better. Past Medical/Surgical History Past Medical/Surgical History Back surgery. Family and Social History Family and Social History Nonsmoker nondrinker Allergies and medications Allergies: Coded Allergies: NO KNOWN ALLERGIES (Unverified , 06/21/21) Home Meds Reported Medications Semaglutide (Ozempic) 2 Mg/3 Ml Inj, 2 MG SC Weekly, INJ 05/29/24 Pregabalin (Lyrica) 50 Mg Cap, 2 CAP PO qHS, #90 CAP 05/29/24 Pregabalin (Lyrica) 50 Mg Cap, 1 CAP PO DAILY, #90 CAP 05/29/24 Quetiapine Fumerate (Seroquel) 400 Mg Tab, 1200 MG PO qHS, TAB 05/29/24 Quetiapine Fumerate (Seroquel) 400 Mg Tab, 600 MG PO DAILY, TAB 05/29/24 Gabapentin (Neurontin) 300 Mg Cap, 2 CAP PO qHS, #90 CAP 3 Refills 05/29/24 Gabapentin (Neurontin) 300 Mg Cap, 1 CAP PO 12:00 PM, #90 CAP 3 Refills 05/29/24 Gabapentin (Neurontin) 300 Mg Cap, 1 CAP PO DAILY, #90 CAP 3 Refills 05/29/24 Topiramate (Topiramate) 25 Mg Tab, 1 TAB PO BID, #60 TAB 05/29/24 Apixaban Base (ELIQUIS) 5 Mg Tab, 5 MG PO BID, TAB 05/29/24 Carvedilol (Coreg) 25 Mg Tab, 12.5 MG PO BID, TAB 05/29/24 Levetiracetam (KEPPRA TABLET) 500 Mg Tb, 1500 MG PO qHS, TAB 05/29/24 Levetiracetam (KEPPRA TABLET) 500 Mg Tb, 750 MG PO DAILY, TAB 05/29/24 Omeprazole (Gnp Omeprazole) 20 Mg Tab, 20 MG PO BID, TAB 05/29/24 Docusate Sodium (Colace) 100 Mg Cap, 200 MG PO qHS, CAP 05/29/24 Docusate Sodium (Colace) 100 Mg Cap, 200 MG PO 12:00 PM, CAP 05/29/24 Docusate Sodium (Colace) 100 Mg Cap, 100 MG PO DAILY, CAP 05/29/24 Senna (Senokot) 8.6 Mg Tab, 17 MG PO DAILY, TAB 05/29/24 Cholecalciferol (VITAMIN D3) 2,000 Unit Tab, 3000 UNIT OR DAILY, TAB 05/29/24 Fexofenadine Hcl (KP FEXOFENADINE HCL) 60 Mg Tab, 180 MG PO DAILY, TAB 05/29/24 Furosemide (Lasix) 40 Mg Tab, 60 MG PO DAILY, TAB 05/29/24 Modafinil (MODAFINIL) 100 Mg Tab, 200 MG PO DAILY, TAB 05/29/24 Atorvastatin Calcium (Lipitor) 20 Mg Tab, 80 MG PO DAILY, TAB 05/29/24 Review of systems Review of Systems: HEENT:Normal, CVS:Normal, RESPIRATORY:Normal, GI:Normal, :Normal, MSK:Normal, NEURO:Normal Examination Vital signs Vital Signs Date Time Temp Pulse Resp B/P (MAP) Pulse Ox O2 Delivery O2 Flow Rate FiO2 05/31/24 05:00 80 20 99/58 (72) 93 05/31/24 01:00 97.5 97.5 05/30/24 20:00 Room Air* 0 21 Medications Current Medications Medications (Trade) Dose Ordered Sig/Aislinn Route PRN Reason Start Time Stop Time Status Last Admin Apixaban (Eliquis) 5 mg BID PO 05/30/24 22:00 05/30/24 22:38 Atorvastatin Calcium (Lipitor) 80 mg DAILY PO 05/31/24 10:00 Docusate Sodium (Colace Capsule) 200 mg BID PO 05/30/24 22:00 05/30/24 22:38 Furosemide (Lasix Tablet) 60 mg DAILY PO 05/31/24 10:00 Levetiracetam (Keppra Tablet) 1,500 mg HS PO 05/30/24 22:00 05/30/24 22:38 Levetiracetam (Keppra Tablet) 750 mg DAILY PO 05/31/24 10:00 Sennosides (Senokot Tablet) 17 mg DAILY PO 05/31/24 10:00 Topiramate (Topamax) 25 mg BID PO 05/30/24 22:00 05/30/24 22:38 Laboratory Labs Test 05/28/24 13:23 05/28/24 13:07 Range/Units White Blood Count 5.4 4.4-10.8 10^3/uL Red Blood Count 5.00 4.5-5.90 10^6/uL Hemoglobin 16.1 13.5-17.5 g/dL Hematocrit 47.0 41.0-53.0 % Mean Corpuscular Volume 93.9 80.0-100.0 fL Mean Corpuscular Hemoglobin 32.2 H 28.0-32.0 pg Mean Corpuscular Hemoglobin Concent 34.3 32.0-36.0 g/dL Red Cell Distribution Width 15.0 H 11.8-14.3 % Platelet Count 176 140-450 10^3/uL Mean Platelet Volume 10.3 6.9-10.8 fL Neutrophils (%) (Auto) 57.6 37.0-80.0 % Lymphocytes (%) (Auto) 30.0 10.0-50.0 % Monocytes (%) (Auto) 8.8 0.0-12.0 % Eosinophils (%) (Auto) 2.4 0.0-7.0 % Basophils (%) (Auto) 1.2 0.0-2.0 % Neutrophils # (Auto) 3.1 1.6-8.6 10 ^3/uL Lymphocytes # (Auto) 1.6 0.4-5.4 10 ^3/uL Monocytes # (Auto) 0.5 0-1.3 10 ^3/uL Eosinophils # (Auto) 0.1 0-0.8 10 ^3/uL Basophils # (Auto) 0.1 0-0.2 10 ^3/uL Nucleated Red Blood Cells 0.1 % Sodium Level 139 136-145 mmol/L Potassium Level 3.1 L 3.5-5.1 mmol/L Chloride Level 102 98-107 mmol/L Carbon Dioxide Level 31 20-31 mmol/L Anion Gap 6 5-15 Blood Urea Nitrogen 7 L 9-23 mg/dL Creatinine 1.44 H 0.700-1.30 mg/dL Glomerular Filtration Rate Calc 55 >90 mL/min BUN/Creatinine Ratio 4.9 L 10.0-20.0 Serum Glucose 96 74-106 mg/dL Calcium Level 10.0 8.7-10.4 mg/dL Magnesium Level 2.2 1.6-2.6 mg/dL Total Bilirubin 0.9 0.2-1.0 mg/dL Aspartate Amino Transferase (AST) 24 13-40 U/L Alanine Aminotransferase (ALT) 17 7-40 U/L Alkaline Phosphatase 69 46-116 U/L B-Type Natriuretic Peptide 11.15 0-100 pg/mL Total Protein 6.4 5.7-8.2 g/dL Albumin 4.0 3.2-4.8 g/dL Lipase 23 12-53 U/L Vitamin D 25-Hydroxy 56.5 30.0-100 ng/mL Thyroid Stimulating Hormone (TSH) 0.98 0.55-4.78 uIU/mL Free Thyroxine (T4) Calculated 1.09 0.89-1.76 ng/dL Free Triiodothyronine (T3) pg/mL 1.98 L 2.3-4.2 pg/mL Urine Color Colorless Yellow Urine Clarity Clear Clear Urine pH 7.0 5.0-9.0 Urine Specific [place] 1.005 1.001-1.035 Urine Protein Negative Negative Urine Ketones Negative Negative Urine Blood Negative Negative /uL Urine Nitrite Negative Negative Urine Bilirubin Negative Negative Urine Urobilinogen Normal Negative mg/dL Urine Leukocyte Esterase 1+ Negative /uL Urine RBC 3 0 - 3 /hpf Urine Microscopic WBC 17 H 0-3 /HPF Urine Squamous Epithelial Cells Few <5 /hpf Urine Bacteria None seen None Seen /hpf Urine Glucose Normal Normal mg/dL Microbiology Date/Time Source Procedure Growth Status 05/28/24 13:07 Urine - [place] Urine Culture - Preliminary Resulted Examination: GENERAL:Normal, HEENT:Normal, NECK:Normal, LUNGS:Normal, CVS:Normal, ABDOMEN:Normal, MSK:Normal, SKIN:Normal, NEURO:Normal, :Normal Problem List/Assessment/Plan Problems: (1) Intractable abdominal pain Assessment and Plan Chronic constipation resolved with soapsuds enemas. Recommend a bowel regimen Recommend GI workup as an outpatient. Plan discussed with Plan discussed with: Patient Visit Coding Surgery Date of Service if different f: May 31, 2024 Billing Provider: MITZY FUNK Jr., MD Surgery Visit Codes: 09662 - INP CONSULT <80 MIN MITZY FUNK Jr., MD May 31, 2024 08:10
[2024-05-31] MEDS: FUROSEMIDE 40 MG TAB PO SCH (10:00)
[2024-05-31] MEDS: SENNA 8.6 MG TAB PO SCH (10:00)
[2024-05-31] MEDS: levETIRAcetam 500 MG TAB PO SCH (10:34)
[2024-05-31] MEDS: ATORVASTATIN 20 MG TAB PO SCH (10:36)
[2024-06-01 01:00] VITALS: BP 96/51; PULSE 78; RESP 16; TEMP 98.4; O2SAT 95
[2024-06-01 05:00] VITALS: BP 103/44; PULSE 76; RESP 16; TEMP 98.6; O2SAT 93
[2024-06-01 08:00] VITALS: PULSE 86; RESP 16; O2SAT 95
[2024-06-01 08:37] VITALS: BP 109/56; PULSE 86; RESP 16; TEMP 98; O2SAT 95
--- NOTE | 2024-06-01 11:33 | DVHDS2 ---
Discharge Summary Date of Admission May 28, 2024 at 20:56 Date of Discharge: Jun 01, 2024 Admitting Diagnosis Abdominal pain likely due to severe constipation Descending thoracic aneurysm up to 40 mm. Acute urinary retention Chronic CHF systolic versus diastolic Chronic obstructive pulmonary disease, not exacerbation History of [place] History of stroke History of atrial fibrillation on anticoagulation Eliquis Former smoker History of meth use Presence of AICD Labs/Diagnostic Data: Laboratory Results Test 05/28/24 13:23 05/28/24 13:07 White Blood Count 5.4 10^3/uL (4.4-10.8) Red Blood Count 5.00 10^6/uL (4.5-5.90) Hemoglobin 16.1 g/dL (13.5-17.5) Hematocrit 47.0 % (41.0-53.0) Mean Corpuscular Volume 93.9 fL (80.0-100.0) Mean Corpuscular Hemoglobin 32.2 pg (28.0-32.0) Mean Corpuscular Hemoglobin Concent 34.3 g/dL (32.0-36.0) Red Cell Distribution Width 15.0 % (11.8-14.3) Platelet Count 176 10^3/uL (140-450) Mean Platelet Volume 10.3 fL (6.9-10.8) Neutrophils (%) (Auto) 57.6 % (37.0-80.0) Lymphocytes (%) (Auto) 30.0 % (10.0-50.0) Monocytes (%) (Auto) 8.8 % (0.0-12.0) Eosinophils (%) (Auto) 2.4 % (0.0-7.0) Basophils (%) (Auto) 1.2 % (0.0-2.0) Neutrophils # (Auto) 3.1 10 ^3/uL (1.6-8.6) Lymphocytes # (Auto) 1.6 10 ^3/uL (0.4-5.4) Monocytes # (Auto) 0.5 10 ^3/uL (0-1.3) Eosinophils # (Auto) 0.1 10 ^3/uL (0-0.8) Basophils # (Auto) 0.1 10 ^3/uL (0-0.2) Nucleated Red Blood Cells 0.1 % Sodium Level 139 mmol/L (136-145) Potassium Level 3.1 mmol/L (3.5-5.1) Chloride Level 102 mmol/L (98-107) Carbon Dioxide Level 31 mmol/L (20-31) Anion Gap 6 (5-15) Blood Urea Nitrogen 7 mg/dL (9-23) Creatinine 1.44 mg/dL (0.700-1.30) Glomerular Filtration Rate Calc 55 mL/min (>90) BUN/Creatinine Ratio 4.9 (10.0-20.0) Serum Glucose 96 mg/dL (74-106) Calcium Level 10.0 mg/dL (8.7-10.4) Magnesium Level 2.2 mg/dL (1.6-2.6) Total Bilirubin 0.9 mg/dL (0.2-1.0) Aspartate Amino Transferase (AST) 24 U/L (13-40) Alanine Aminotransferase (ALT) 17 U/L (7-40) Alkaline Phosphatase 69 U/L (46-116) B-Type Natriuretic Peptide 11.15 pg/mL (0-100) Total Protein 6.4 g/dL (5.7-8.2) Albumin 4.0 g/dL (3.2-4.8) Lipase 23 U/L (12-53) Vitamin D 25-Hydroxy 56.5 ng/mL (30.0-100) Thyroid Stimulating Hormone (TSH) 0.98 uIU/mL (0.55-4.78) Free Thyroxine (T4) Calculated 1.09 ng/dL (0.89-1.76) Free Triiodothyronine (T3) pg/mL 1.98 pg/mL (2.3-4.2) Urine Color Colorless (Yellow) Urine Clarity Clear (Clear) Urine pH 7.0 (5.0-9.0) Urine Specific [place] 1.005 (1.001-1.035) Urine Protein Negative (Negative) Urine Ketones Negative (Negative) Urine Blood Negative /uL (Negative) Urine Nitrite Negative (Negative) Urine Bilirubin Negative (Negative) Urine Urobilinogen Normal mg/dL (Negative) Urine Leukocyte Esterase 1+ /uL (Negative) Urine RBC 3 /hpf (0 - 3) Urine Microscopic WBC 17 /HPF (0-3) Urine Squamous Epithelial Cells Few /hpf (<5) Urine Bacteria None seen /hpf (None Seen) Urine Glucose Normal mg/dL (Normal) Other Laboratory Tests 05/28/24 13:23 Brief Hx & Hospital Course: This is a 59 years old male with past medical history of COPD, congestive heart failure, [place], urinary incontinence, atrial fibrillation, CVA, back pain, spinal effusion, aortic aneurysm came to emergency department because of diffuse abdominal pain. The patient apparently did not have bowel movement for three weeks. Abdominal pain associated with dry heaves and nausea but no vomiting. CT abdomen pelvis unremarkable except constipation. GI was consulted and , recommend soap enema. Patient able to move his bowel movement so I am discharge the patient home today. Advised the patient to follow up with primary care physician 1-2 weeks. Follow up with GI specialist per schedule. Activity as tolerated. Diet home diet. Recommend increase intake of fiber. Physical exam: HEENT: Normocephalic atraumatic pupils equal react to light and accommodation. Extraocular muscles intact, conjunctiva pink, oropharynx moist, no thrush, no exudate. Lymphatic: No lymphadenopathy Cardiovascular exam: S1, S2 was heard. No murmurs, rubs, gallops Lung: Clear on auscultation bilaterally, no wheeze, rale, rhonchi. GI: Abdominal soft, nondistended, nontenderness, positive bowel sounds. Extremity: No crepitus, cyanosis, edema. Pedal pulses present bilateral. Full range of motion. Skin: Normal turgor, no rash. Psych: Alert, oriented x3. Neurology: No focal deficits, cranial nerve II to XII grossly intact. This medical document was created using an electronic medical record system with [employer] direct computerized dictation system. Although this document has been carefully reviewed, there may still be some phonetic and typographical errors. These areas are purely typographical due to imperfections of the software programs, and do not reflect any compromise in the patient's medical care. Condition at Discharge: Stable Final Diagnosis/Problems List Abdominal pain likely due to severe constipation Descending thoracic aneurysm up to 40 mm. Acute urinary retention Chronic CHF systolic versus diastolic Chronic obstructive pulmonary disease, not exacerbation History of [place] History of stroke History of atrial fibrillation on anticoagulation Eliquis Former smoker History of meth use Presence of AICD Discharge Disposition: Home Discharge Statement: "Patient was advised to return to the ER or call 911 if any headaches, dizziness, shortness of breath, chest pain, abdominal pain, bleeding, fevers, or worsening of medical condition. Patient was counseled about treatment plan, medications, possible side effects, patientverbalized understanding. All questions were answered to the best of my ability. This discharge took greater then 30 minutes in planning, reviewing documentation, counseling the patient, and discussing with other team members." ASSESSMENT ASSESSMENT Assessment Date of Service: Jun 01, 2024 Billing Provider: BERRY RODRIGUEZ MD Common Visit Codes: 37096-AKA/OBS DISCH DAY >30min BERRY RODRIGUEZ MD Jun 01, 2024 11:33
[2024-06-01 12:12] VITALS: BP 108/65; PULSE 84; RESP 16; TEMP 36.7; O2SAT 96
[2024-06-01 13:05] VITALS: BP 108/65; PULSE 84; RESP 16; TEMP 98.2; O2SAT 96
== END 2024-06-01 13:15 | disposition home or self-care (01) | DRG 247 ==
LOC: EDBD 12:20 → ER 12:20 → OVERFLOW 20:56 → WEST WING 20:57
PROVIDERS: ADMIT Internal Medicine; ATTEND Internal Medicine
DX: K56.41 Fecal impaction (principal); I50.9 Heart failure, unspecified; I71.20 Thoracic aortic aneurysm, without rupture, unspecified; I11.0 Hypertensive heart disease with heart failure; E66.9 Obesity, unspecified; I71.23 Aneurysm of the descending thoracic aorta, without rupture; N30.00 Acute cystitis without hematuria; I25.10 Atherosclerotic heart disease of native coronary artery without angina pectoris; J44.9 Chronic obstructive pulmonary disease, unspecified; R33.9 Retention of urine, unspecified; E78.5 Hyperlipidemia, unspecified; Z82.0 Family history of epilepsy and other diseases of the nervous system; Z87.891 Personal history of nicotine dependence; I25.2 Old myocardial infarction; Z95.0 Presence of cardiac pacemaker; Z68.32 Body mass index [BMI] 32.0-32.9, adult; Z86.73 Personal history of transient ischemic attack (TIA), and cerebral infarction without residual deficits; Z86.0100 Personal history of colon polyps, unspecified; Z79.899 Other long term (current) drug therapy; Z79.82 Long term (current) use of aspirin
CPT/HCPCS: 36415; 71045; 74176; 80053; 81001; 82306; 83690; 83735; 83880; 84439; 84443; 84481; 85025; 87086; G0378; J2405; J2470